=== PATIENT | female | born 1955 | race Caucasian/White ===

== ENCOUNTER 2016-10-31 17:23 | Observation (INO) | payer OTHER ==
[~2016-10-31] VITALS: Ht 149.9 cm; Wt 46.7 kg
[2016-10-31 17:32] VITALS: BP 196/116
[2016-10-31] MEDS ORDERED: HYDROCHLOROTHIA25 M1 PO (17:41)
[2016-10-31] MEDS ORDERED: FERROUS SULFAT325 MG PO (17:41)
[2016-10-31] MEDS ORDERED: METOPROLOL SUC PO (17:41)
[2016-10-31] MEDS ORDERED: LOSARTAN POTAS100 MG PO (17:41)
[2016-10-31] MEDS ORDERED: VENTOLIN H0.09 MG/Ac IH (17:41)
[2016-10-31] MEDS ORDERED: MASON NATURAL1000 IU PO (17:41)
[2016-10-31] MEDS ORDERED: GOOD SENSE OMEP20 MG PO (17:41)
--- NOTE | 2016-10-31 20:00 | NUR ---
TO ER BED 8
[2016-10-31] MEDS ORDERED: cloNIDine 0.1 MG TAB PO ONE (20:05)
[2016-10-31] MEDS ORDERED: FUROSEMIDE 40 MG TAB PO ONE (20:05)
--- NOTE | 2016-10-31 20:25 | NUR ---
PT IS 60Y/F C/O HYPERTENSION, PT. SENT BY PCP FOR HIGH BP 202/105 GIVEN CLONIDINE 0.1MG AT 1630
--- NOTE | 2016-10-31 20:29 | NUR ---
Patient being evaluated by DR. AYALA at bedside.
[2016-10-31] MEDS ORDERED: hydrALAZINE 20 MG/ML VIAL IVP ONE (20:40)
[2016-10-31] MEDS ORDERED: ASPIRIN 81 MG TAB.CHEW PO ONE (20:40)
[2016-10-31] MEDS ORDERED: NACL 0.9% 1,000 ML IV ONE (20:40)
[2016-10-31] MEDS ORDERED: NITROGLYCERIN 2% 1 GM PKT TP ONE (21:10)
[2016-10-31] MEDS ORDERED: ALBUTEROL HFA MDI 90 MCG/ACTUATION 8 GM INH SCH (21:25)
[2016-10-31] MEDS ORDERED: ACETAMINOPHEN 325 MG TAB PO PRN (21:25)
[2016-10-31] MEDS ORDERED: LABETALOL 100 MG/20 ML VIAL IVP PRN (21:25)
[2016-10-31] MEDS ORDERED: ONDANSETRON 4 MG/2 ML VIAL IVP PRN (21:25)
--- NOTE | 2016-10-31 21:49 | NUR ---
Patient will be admitted to care of DR. SAWANT. Admited to TELEMETRY. Will go to room 111B. Belongings list completed. Report to ANGELINA VU.
[2016-10-31 22:05] VITALS: BP 153/85
--- NOTE | 2016-10-31 22:05 | NUR ---
ADMITTED A 60F FROM ER. CAME BY NAPOLEON . WITH C/O OF VERY HIGH BLOOD PRESSURE FROM HOME. BP AT THIS TIME 153/85.AWAKE,ALERT AND ORIENTED X4. ON TELE MONITOR. NO C/O ANY DISCOMFORT NOR PAIN NOTED AT THIS TIME. AMBULATORY TO BR BUT WITH SOME BLE WEAKNESS . SHE SAID SHE BECOME WEAK SINCE SHE WAS DIAGNOSED WITH INFLAMMATORY BOWEL DISEASE. HAS SWELLING ON BOTH ANKLE AND FEET, NON PITTING. HAS IVF INFUSING ON THE RT FA#[id number]. CLEAR AND PATENT. SKIN INTACT. SHE SAID ALSO SHE LOST 25-30LBS IN THE LAST YEAR. PLAN OF CARE DISCUSSED AND VERBALIZED UNDERSTANDING. ORIENTED TO HOSPITAL ROUTINES. CALL LIGHT PLACED WITHIN EASY REACH. WILL CONTINUE TO MONITOR.
[2016-10-31] MEDS ORDERED: PNEUMOCOCCAL VACCINE 23 MCG/0.5 ML VIAL IMVAC PRN (23:20)
[2016-10-31] MEDS ORDERED: INFLUENZA VIRUS VACCINE QUAD 0.5 ML SYR IMVAC PRN (23:20)
[2016-11-01] VITALS: BP 124/76
--- NOTE | 2016-11-01 01:00 | NUR ---
SLEEPING AT THIS TIME. NO S/S OF ANY DISCOMFORT NOR PAIN NOTED. WILL CONTINUE TO MONITOR.
--- NOTE | 2016-11-01 03:30 | NUR ---
HAS BEEN UP TO THE BR ,VOIDED .WITH SLIGHT DIFFICULTY AMBULATION DUE TO SWELLING AND WEAKNESS ON BOTH FEET.
[2016-11-01 04:05] VITALS: BP 132/84
--- NOTE | 2016-11-01 06:45 | NUR ---
APPLIED FARRAH LOWER LEG SCD MACHINE. PT MADE AWARE OF THE PURPOSE OF THE MACHINE.
[2016-11-01] MEDS ORDERED: ALBUTEROL 0.083% 2.5 MG/3 ML NEBU INH PRN (07:05)
--- NOTE | 2016-11-01 07:27 | NUR ---
ENDORSED PT IN STABLE CONDITION TO HORACE SABACORE FITTER.
[2016-11-01] MEDS ORDERED: PANTOPRAZOLE 40 MG TABEC PO SCH (07:30)
[2016-11-01 08:30] VITALS: BP 136/76
[2016-11-01] MEDS ORDERED: FERROUS SULFATE 325 MG TABEC PO SCH (09:00)
[2016-11-01] MEDS ORDERED: METOPROLOL 50 MG TAB PO SCH (09:00)
[2016-11-01] MEDS ORDERED: ENOXAPARIN 30 MG/0.3 ML SYR SUBQ SCH (09:00)
[2016-11-01] MEDS ORDERED: NON-FORMULARY ITEM (Omeprazole (Omeprazole) 20 MG) PO SCH (09:00)
[2016-11-01] MEDS ORDERED: LOSARTAN 50 MG TAB PO SCH (09:00)
[2016-11-01] MEDS ORDERED: HYDROCHLOROTHIAZIDE 25 MG TAB PO SCH (09:00)
[2016-11-01] MEDS ORDERED: CHOLECALCIFEROL 1,000 IU TAB PO SCH (09:00)
[2016-11-01] MEDS ORDERED: METOPROLOL SUCCINATE 100 MG PO SCH (09:00)
--- NOTE | 2016-11-01 09:00 | NUR ---
RECEIVED SBAR REPORT FROM JAYANT VU. PT RESTING IN BED. DENIES PAIN. NO S/S OF RESPIRATORY DISTRESS. AAOX4. AMBULATORY TO BATHROOM. IV SITE PATENT AND INTACT. CALL LIGHT WITHIN REACH. WILL CONTINUE TO MONITOR.
[2016-11-01] MEDS ORDERED: MEDROL4 MG PO (11:41)
[2016-11-01] MEDS ORDERED: LEVAQUIN750 MG PO (11:41)
[2016-11-01 11:58] VITALS: BP 149/87
[2016-11-01 12:00] VITALS: BP 167/91
[2016-11-01] MEDS ORDERED: LABETALOL 100 MG/20 ML VIAL ONE (12:41)
--- NOTE | 2016-11-01 12:55 | NUR ---
PT MADE AWARE OF DISCHARGE ORDER. PATIENT FAMILY WILL COME PICK HER UP AFTER WORK. PT MEDICATED FOR INCREASED BP. PT RESTING IN BED. FLU/PNA VACCINE ADMINISTERED. CALL LIGHT WITHIN REACH.
[2016-11-01 13:58] VITALS: BP 149/87
--- NOTE | 2016-11-01 14:15 | NUR ---
PT DISCHARGE INSTRUCTIONS GIVEN. PT IV REMOVED, CANULA INTACT. AAOX4. AMBULATORY. DENIES PAIN. NO S/S OF RESPIRATORY DISTRESS. F/U INSTRUCTIONS GIVEN, VERBALIZED UNDERSTANDING. PT WHEELED TO FRONT LOBBY, DAUGHTER TO TAKE PATIENT HOME.
--- NOTE | 2016-11-01 15:10 | NUR ---
INITIAL REVIEW FAXED TO [facility] [phone] PHONE ДМИТРИЙ [phone]
== END 2016-11-01 14:15 | disposition home or self-care (01) ==
LOC: MED 17:23 → MTU 21:24
PROVIDERS: ADMIT Internal Medicine Pulmonary Disease; ATTEND Internal Medicine Pulmonary Disease
DX: I10 Essential (primary) hypertension (principal); J20.9 Acute bronchitis, unspecified; J44.0 Chronic obstructive pulmonary disease with (acute) lower respiratory infection; F17.200 Nicotine dependence, unspecified, uncomplicated; R04.0 Epistaxis
CPT/HCPCS: 36415; 71010; 80053; 83690; 83880; 84484; 85025; 85610; 85730; 87081; 90471; 90472; 90658; 90732; 93005; 94760; 96361; 96372; 96374; 96375; 99285; G0378; J0360; J1650; J3490; J7030

== ENCOUNTER 2017-04-26 10:11 | Inpatient (IN) | payer OTHER ==
[~2017-04-26] VITALS: Ht 152.4 cm; Wt 49.0 kg
[~2017-04-26 10:11] MED LIST: ALBU0.0912 IH; CHOL100013 PO; FERR325E14 PO; HYDR25TA32 PO; LEVO750T2 PO; LOSA100T25 PO; METH4TAB1 PO; METO-498 PO; OMEP20TC24 PO
[2017-04-26 10:15] VITALS: BP 196/111
[2017-04-26] MEDS ORDERED: ONDA4TAB PO (10:27)
--- NOTE | 2017-04-26 10:28 | NUR ---
PATIENT AMBULATED TO ER BED 4.
--- NOTE | 2017-04-26 10:30 | NUR ---
PATIENT BEING EVALUATED BY DR. HANSON.
--- NOTE | 2017-04-26 10:35 | NUR ---
PATIENT PRESENTS TO ED WITH C/O NAUSEA/VOMITING X 6MONTHS- 1 YR;X 1-3 EPISODES/ DAY DYSURIA, HESISTANCY, URGENCY X 6 MONTHS to 1 YR;CONSTIPATION;DENIES BURING UPON VOIDING , NO BLOOD IN URINE;LUIS ANGEL JAMA,HAS UPCOMING APPT FOR BX;DX of UTI RX KEFLEX 04/17/2017 AT [facility] but didn't finish medicine because she vomit everytime she takes in meds;HX of HTN, ARTHRITIS, COLITIS,GALLSTONES, RENAL FAILURE;RX of LOSARTAN/HCTZ, METOPROLOL, OMEPRAZOLE,PROZAC,VIT D3, ZOFRAN . SKIN IS PINK/WARM/DRY; AAOX4 WITH EVEN AND STEADY GAIT; LUNGS CLEAR BL; HR EVEN AND REGULAR; PT DENIES ANY FEVER, CP,OR COUGH AT THIS TIME; PATIENT STATES PAIN OF 7/10 abdominal pain AT THIS TIME; PATIENT POSITIONED FOR COMFORT; HOB ELEVATED; BEDRAILS UP X2; BED DOWN. all monitors in placed;ER MD MADE AWARE OF PT STATUS.
--- NOTE | 2017-04-26 10:56 | NUR ---
er at bedside
[2017-04-26] MEDS ORDERED: NACL 0.9% 1,000 ML IV SCH (10:57)
[2017-04-26] MEDS ORDERED: ONDANSETRON 4 MG/2 ML VIAL IVP ONE (11:00)
[2017-04-26 11:28] LABS: HEMATOCRIT 36.3 % (36-48); HEMOGLOBIN 11.7 g/dL (12.0-16.0); MEAN CORPUSCULAR HEMOGLOBIN 28 pg (27-31); MEAN CORPUSCULAR HGB CONC 32 g/dL (33-37); MEAN CORPUSCULAR VOLUME 87 fL (80-94); PLATELET COUNT (AUTO) 118 K/uL (140-450); RED CELL DISTRIBUTION WIDTH 13.5 % (11.6-13.7)
[2017-04-26 11:33] LABS: ANION GAP 9.6 (8-16); CARBON DIOXIDE 25.5 mmol/L (21-32); CREATININE 0.9 mg/dL (0.6-1.3); POTASSIUM 4.1 mmol/L (3.5-5.1)
[2017-04-26 11:33] LABS: BILIRUBIN,URINE NEGATIVE (NEGATIVE); BLOOD, URINE TRACE-I (NEGATIVE); COLOR,URINE YELLOW (YELLOW); LEUKOCYTE ESTERASE ,URINE NEGATIVE (NEGATIVE); NITRITE, URINE NEGATIVE (NEGATIVE); PH,URINE 6.5 (5.0-9.0); UGLUCOSE NEGATIVE (NEGATIVE)
[2017-04-26 11:36] LABS: WHITE BLOOD COUNT (AUTO) 2.4 K/uL (4.8-10.8)
[2017-04-26 11:39] LABS: ALBUMIN 2.6 g/dL (3.4-5.0); TOTAL BILIRUBIN 0.3 mg/dL (0.0-1.0)
[2017-04-26 11:42] LABS: BASOPHILS % (MANUAL) 1 % (0-2); EOSINOPHILS % (MANUAL) 2 % (0-4); LYMPHOCYTES % (MANUAL) 30 % (20-46); MONOCYTES % (MANUAL) 13 % (5-12)
[2017-04-26 11:45] LABS: APPEARANCE,URINE CLEAR (CLEAR)
[2017-04-26 11:47] LABS: RBC,URINE 0-5 (RARE) /HPF (0-5); WBC,URINE 0-5 (RARE) /HPF (0-5)
--- NOTE | 2017-04-26 12:17 | NUR ---
BP OF PT IS HIGH;RECYCLED BP 3X AND DID THE MANUAL BP OBTAINED BP OF 220/120;ER MD NOTIFIED;ALL MONITORS IN PLACED;EILL CONTINUE TO MONITOR PT;
[2017-04-26] MEDS ORDERED: ENALAPRILAT 2.5 MG/2 ML VIAL IVP ONE (12:20)
--- NOTE | 2017-04-26 13:26 | NUR ---
BP WENT DOWN TO 148/115;PT RESTING ON BED;ALL MONITORS IN PLACED;WILL CONTINUE TO MONITOR PT.
[2017-04-26] MEDS ORDERED: MAG SULF 2000 MG/WATER PREMIX 50 ML IV PRN (13:40)
[2017-04-26] MEDS ORDERED: POTASSIUM CHLORIDE 40 MEQ, LIDOCAINE 1% 25 MG in NACL 0.9% 250 ML IV PRN (13:40)
[2017-04-26] MEDS ORDERED: MORPHINE SULFATE 2 MG/ML SYR IVP PRN (13:40)
[2017-04-26] MEDS ORDERED: ACETAMINOPHEN 650 MG SUPP RC PRN (13:40)
[2017-04-26] MEDS ORDERED: DOCUSATE SODIUM 250 MG GELCAP PO PRN (13:40)
[2017-04-26] MEDS ORDERED: MAGNESIUM OXIDE 400 MG TAB PO PRN (13:40)
[2017-04-26] MEDS ORDERED: ALBUTEROL 0.083% 2.5 MG/3 ML NEBU INH PRN (13:40)
[2017-04-26] MEDS ORDERED: POTASSIUM CHLORIDE 10 MEQ TABER PO PRN (13:40)
[2017-04-26] MEDS ORDERED: IPRATROPIUM 0.02% 0.5 MG/2.5 ML NEBU INH PRN (13:40)
[2017-04-26] MEDS ORDERED: diphenhydrAMINE 50 MG/ML VIAL IVP PRN (13:40)
[2017-04-26] MEDS ORDERED: ALUMINUM HYD/MAG/SIMETHICONE 30 ML UDC PO PRN (13:40)
[2017-04-26] MEDS ORDERED: SODIUM PHOSPHATE 118 ML ENEM RC PRN (13:40)
[2017-04-26] MEDS ORDERED: BISACODYL 10 MG SUPP RC PRN (13:40)
[2017-04-26] MEDS ORDERED: guaiFENesin DM 200/20 MG-10 ML 10 ML UDC PO PRN (13:40)
[2017-04-26] MEDS ORDERED: ACETAMINOPHEN 325 MG TAB PO PRN (13:40)
[2017-04-26] MEDS ORDERED: HYDROcodone/APAP 5/325 MG 1 TAB TAB PO PRN ×2 (13:40)
[2017-04-26] MEDS ORDERED: LORazepam 2 MG/ML VIAL IVP PRN (13:40)
--- NOTE | 2017-04-26 14:05 | NUR ---
BP WENT UP TO 210/118;RECYCLED BP 2 X;NOTIFIED ER MD;ALL MONITORS IN PLACED;WILL CONTINUE TO MONITOR PT.
--- NOTE | 2017-04-26 14:10 | NUR ---
DAUGHTER AT BEDSIDE;NO ACUTE DISTRESS NOTED;WILL CONTINUE TO MONITOR PT.
--- NOTE | 2017-04-26 15:12 | NUR ---
REPORT GIVEN TO KERRI,ICU NURSE
[2017-04-26] MEDS: DEXT 5% / NACL 0.45% 1,000 ML IV SCH (15:43)
[2017-04-26] MEDS: hydrALAZINE 20 MG/ML VIAL IVP PRN (15:45)
--- NOTE | 2017-04-26 15:45 | NUR ---
ADMITTED PT FROM ER BY NAPOLEON, PT AWAKE, ALERT, AND ORIENTED. ATTACHED PT ON BEDSIDE MONITOR SHOWS SB, HR 52, BP 214/118, RR 17, 02 SAT 100%. ON ROOM AIR. NO S/S OF RESPIRATORY DISTRESS NOTED. LUNG SOUND CLEAR. ABDOMEN SOFT, NON TENDER. PT HAS IV TO RIGHT HAND # 24. PT ABLE TO MOVE ALL HER EXTREMITIES BUT GENERALIZED WEAKNESS NOTED. HOB ELEVATED 30 DEGREES WITH LOW BED POSITION, ORIENTED PT ICU ENVIRONMENT, WILL CONTINUE TO MONITOR.
[2017-04-26 16:00] VITALS: BP 191/113
[2017-04-26] MEDS: ONDANSETRON 4 MG/2 ML VIAL IVP PRN (16:53)
--- NOTE | 2017-04-26 16:58 | NUR ---
PT BP 147/75, HR 53, O2 98% AT THIS TIME.
[2017-04-26 18:00] VITALS: BP 186/77
[2017-04-26] MEDS: cloNIDine 0.1 MG TAB PO PRN (18:05)
--- NOTE | 2017-04-26 18:05 | NUR ---
PAGED DR. BOWDEN REGARDING CATAPRESS, DR. BURGESS HELPER STEEL FABRICATION. NOTIFIED DR. BURGESS PT BP 186/77, HR 54 AT THIS TIME, APRESOLINE WAS GIVEN AT 1545. PER IT IS OK TO GIVE CATAPRES, WILL CARRY OUT.
--- NOTE | 2017-04-26 18:35 | NUR ---
PT BP 165/91, HR 52, RR 19, O2 SAT 99%. AT THIS TIME
--- NOTE | 2017-04-26 19:24 | NUR ---
REPORT GIVEN TO KARISHMA VU. PT BP 127/75, HR 54, O2 SAT 98% AT THIS TIME.
--- NOTE | 2017-04-26 19:30 | NUR ---
RECEIVED REPORT FROM AM NURSE WITH HORACE SCHWARZ. PT SLEEPING COMFORTABLY IN BED, CONDITION STABLE. MONITORING IN PLACE. NO S/S OF ACUTE DISTRESS. ALL NEEDS MET. SAFETY MEASURES ENSURED. CALL LIGHT WITHIN REACH.
[2017-04-26 20:00] VITALS: BP 109/63
[2017-04-26] MEDS ORDERED: METOPROLOL SUCCINATE 100 MG PO SCH (21:00)
[2017-04-26] MEDS ORDERED: METOPROLOL 50 MG TAB PO SCH (21:00)
[2017-04-26] MEDS ORDERED: METOPROLOL SUCCINATE 50 MG TABER PO SCH (21:00)
[2017-04-26 22:00] VITALS: BP 135/79
--- NOTE | 2017-04-26 22:00 | NUR ---
SLEEPING COMFORTABLY IN BED; V/S ESPECIALLY BP HAS BEEN NORMALIZED SINCE ANTI HTN MEDS GIVEN BY DAY SHIFT RN.
[2017-04-27] VITALS (16 sets, daily range): BP systolic 130–180; BP diastolic 72–100
--- NOTE | 2017-04-27 00:45 | NUR ---
AWAKE; SIT ON A BEDSIDE COMMODE, WAS ABLE TO PASSED STOOL BUT SHE SAID SHE GOT A HARD TIME PEE AND SHE COMPLAIN OF ABDOMINAL PAIN AFTER; PAIN SCALE 8/10; PAGED DR. SHANE AT 0055 TO REFER PATIENT; RETURNED CALL IMMEDIATELY, GOT NEW ORDERS, CARRIED OUT.
[2017-04-27] MEDS ORDERED: IBUPROFEN 600 MG TAB PO PRN (01:00)
[2017-04-27] MEDS: KETOROLAC 30 MG/ML VIAL IVP PRN ×2 (01:12→09:28)
[2017-04-27] MEDS ORDERED: KETOROLAC 30 MG/ML VIAL ONE (01:14)
--- NOTE | 2017-04-27 01:25 | NUR ---
SPOKE AND DISCUSSED TO PATIENT ABOUT HER CODE STATUS SHE SAID SHE'LL DECIDE LATER AFTER SHE DISCUSSED IT WITH HER DAUGHTER.
--- NOTE | 2017-04-27 05:00 | NUR ---
REFUSED TO HAVE A SPONGE BATH AT THIS TIME, PREFERS TO SLEEP.
[2017-04-27 05:53] LABS: ANION GAP 8.5 (8-16); CARBON DIOXIDE 20.9 mmol/L (21-32); POTASSIUM 3.4 mmol/L (3.5-5.1)
[2017-04-27 06:20] LABS: BASOPHILS # (AUTO) 0.1 K/uL (0.00-0.22); BASOPHILS % (AUTO) 4.6 % (0.0-2.0); EOSINOPHILS % (AUTO) 1.5 % (0.0-4.0); HEMATOCRIT 33.9 % (36-48); HEMOGLOBIN 10.9 g/dL (12.0-16.0); LYMPHOCYTES # (AUTO) 1.2 K/uL (2.5-16.5); LYMPHOCYTES % (AUTO) 40.7 % (20.5-51.1); MEAN CORPUSCULAR HEMOGLOBIN 29 pg (27-31); MEAN CORPUSCULAR HGB CONC 32 g/dL (33-37); MEAN CORPUSCULAR VOLUME 88 fL (80-94); MONOCYTES # (AUTO) 0.4 K/uL (0.8-1.0); MONOCYTES % (AUTO) 12.6 % (1.7-9.3); NEUTROPHILS # (AUTO) 1.2 K/uL (1.8-7.7); NEUTROPHILS % (AUTO) 40.6 % (42.2-75.2); PLATELET COUNT (AUTO) 114 K/uL (140-450); RED BLOOD CELL COUNT(AUTO) 3.84 MIL/uL (4.20-5.40); RED CELL DISTRIBUTION WIDTH 13.4 % (11.6-13.7); WHITE BLOOD COUNT (AUTO) 2.9 K/uL (4.8-10.8)
[2017-04-27] MEDS: hydrALAZINE 20 MG/ML VIAL IVP PRN ×6 (06:21→22:06)
--- NOTE | 2017-04-27 06:57 | NUR ---
PATIENT HAS BEEN SCREENED AND CATEGORIZED HIGH NUTRITION RISK. PATIENT WILL BE SEEN WITHIN 1-2 DAYS OF ADMISSION. 04/27/17-04/28/17 KEI MANRIQUE MS, RDN
--- NOTE | 2017-04-27 07:30 | NUR ---
ENDORSED TO AM SHIFT RN RAWI FOR CONTINUITY OF CARE.
--- NOTE | 2017-04-27 07:45 | NUR ---
RECEIVED PATIENT AWAKE,ALERT AND ORIENTED X 4. MONITOR SHOWS SINUS BRADYCARDIA 48/MIN,BUT PATIENT IS ASYMPTOMATIC. DENIES SOB OR PAIN AT THIS TIME. RESP IS EASY,REGULAR AND ON ROOM AIR WITH O2 SAT 97%. ABDOMEN IS SOFT,ACTIVE BOWEL TONE AND TENDER ON EPIGASTRIC AREA. PATIENT DENIES NAUSEA. NO BLADDER DISTENTION. SKIN IS WARM,DRY AND INTACT. NO EDEMA. ABLE TO MOVE ALL EXTREMITIES. HAS IV OF D5/0.45 NS @ 70 ML/HR. CONDITION IS STABLE. AM CARE AND ORAL CARE GIVEN. GETTING PATIENT READY FOR BREAKFAST.
[2017-04-27] MEDS: DEXT 5% / NACL 0.45% 1,000 ML IV SCH (07:48)
--- NOTE | 2017-04-27 08:10 | NUR ---
PATIENT WITH BREAKFAST TRAY AT THIS TIME NO SOB NOTED
--- NOTE | 2017-04-27 08:30 | NUR ---
PATIENT ATE BREAKFAST 50% AND TAKING FLUID FAIR.
[2017-04-27] MEDS ORDERED: NON-FORMULARY ITEM (Losartan Potassium 100 MG) PO SCH (09:00)
[2017-04-27] MEDS ORDERED: NON-FORMULARY ITEM (Cholecalciferol (Vitamin D3) (Vitamin D3) 1,000 IU) PO SCH (09:00)
[2017-04-27] MEDS ORDERED: NON-FORMULARY ITEM (Omeprazole (Omeprazole) 20 MG) PO SCH (09:00)
[2017-04-27] MEDS ORDERED: METOPROLOL SUCCINATE 50 MG TABER PO SCH (09:00)
[2017-04-27] MEDS ORDERED: CHOLECALCIFEROL 1,000 IU TAB PO SCH (09:00)
--- NOTE | 2017-04-27 09:00 | NUR ---
PATIENT GOT OUT OF BED TO BEDSIDE COMMODE. TOLERATED WELL. PATIENT VOIDED 50 ML SLIGHTLY CLOUDY YELLOW URINE AND HAS SMALL HARD FORMED BROWN STOOL. COMPLETE BATH GIVEN AND PARTIAL LINEN CHANGED.
[2017-04-27] MEDS ORDERED: PROBIOTIC SCREEN 1 EA MISC MC PRN (09:15)
[2017-04-27] MEDS: PANTOPRAZOLE 40 MG TABEC PO SCH (09:25)
[2017-04-27] MEDS: HYDROCHLOROTHIAZIDE 25 MG TAB PO SCH (09:28)
--- NOTE | 2017-04-27 09:28 | NUR ---
PATIENT C/O PRESSURE PAIN IN EPIGASTRIC AREA AND LT UPPER ABDOMEN WITH PAIN SCALE LEVEL OF 8/10. DENIES NAUSEA. MEDICATED WITH TORADOL 30 MG IVP PER ORDER. CONTINUE TO MONITOR PATIENT.
--- NOTE | 2017-04-27 09:47 | NUR ---
WAS NOTIFIED OF PATIENT HAS BRADYCARDIA WITH HEART RATE BETWEEN 45-49/MIN IN THE PAST 2 HR AND PATIENT IS ASYMPTOMATIC. ALSO WAS NOTIFIED OF METOPROLOL WAS ON HOLD DUE SLOW HEART RA PER : OKAY TO HOLD METOPROLOL,BUT IT IS OKAY TO GIVE COZAAR. ORDER CARRIED OUT.
[2017-04-27] MEDS ORDERED: POTASSIUM CHLORIDE 10 MEQ TABER PO SCH (09:55)
[2017-04-27] MEDS: LOSARTAN 50 MG TAB PO SCH (09:59)
--- NOTE | 2017-04-27 10:00 | NUR ---
GRAND DAUGHTER PRESENT AT BEDSIDE. PATIENT STATES THAT THE PAIN IS MUCH BETTER NOW WITH PAIN SCALE LEVEL OF 2 OUT OF 10.
--- NOTE | 2017-04-27 11:00 | NUR ---
APPLIED SCD TO BOTH LOWER LEGS FOR VTE PROPHYLAXIS.
--- NOTE | 2017-04-27 13:40 | NUR ---
IS AT BEDSIDE ,EXAMINED THE PATIENT THEN HE SPOKE TO PATIENT'S GRAND DAUGHTER BY PHONED REGARDING PT'S CONDITION AND PLAN OF CARE. PATIENT IS ALERT AND ORIENTED. VERBALIZED UNDERSTANDING WHEN SPOKE TO HER. NEW ORDER RECEIVED: D.C IV FLUID,CHANGE SOME OF HYPERTENSIVE DRUG AND TRANSFER PATIENT TO TELEMETRY.
--- NOTE | 2017-04-27 17:22 | NUR ---
AWAKE AND ALERT. BP IS HIGH 174/85 , SINUS BRADYCARDIA 54/MIN. DENIES HEADACHE. GIVEN PATIENT PRN APRESOLINE 10 MG IVP PER ORDER.
--- NOTE | 2017-04-27 18:15 | NUR ---
DAUGHTER PRESENT AT BEDSIDE. UP TO BSC AND VOIDED 150 ML YELLOW URINE.
[2017-04-27] MEDS: hydrALAZINE 25 MG TAB PO SCH (18:27)
--- NOTE | 2017-04-27 18:30 | NUR ---
BP 160/84 ,HR 56/MIN.
--- NOTE | 2017-04-27 18:53 | NUR ---
ENDORSED TO TELE NURSE ARAMIS VU TO FOLLOW UP WITH REGARDING THE PATIENT WANTS TO HAVE PNEUMOCOCCAL VACCINATION PRIOR TO DISCHARGE.
--- NOTE | 2017-04-27 18:53 | NUR ---
PATIENT WILL BE TRANSFERRED TO TELE BED ROOM 119-A. PT'S DAUGHTER IS STILL HERE AND MADE AWARE. REPORT GIVEN TO TELE NURSE ARAMIS VU.
--- NOTE | 2017-04-27 19:05 | NUR ---
CONDITION IS UNCHANGED. HR 56/MIN SINUS BRADYCARDIA. LT FOREARM IV SALINE LOCK IS INTACT. TRANSFERRED PATIENT TO TELE BED 119-A VIA BED.
--- NOTE | 2017-04-27 19:15 | NUR ---
RECD. RESTING ON BED, AWAKE, A/OX4. RESPIRATION EVEN AND UNLABORED. IV SALINE LOCK AT THE LEFT FA, G24, PATENT AND INTACT. APPEARS WEAK, STATED SHE STILL FEELS SOME NAUSEA, ON AND OFF. INSTRUCTED TO CALL NURSE IF EVER GETTING OUT OF BED FOR ASSISTANCE. SAFETY MEASURES ENFORCED. BED ON ALARM. PLAN OF CARE FOR THE SHIF5 DISCUSSED. VERBALIZED UNDERSTANDING. DENIES PAIN 0/10.
--- NOTE | 2017-04-27 20:00 | NUR ---
Patient's Plan of Care was discussed and reviewed with PROCESS TRAINER: MINOO Sahu
--- NOTE | 2017-04-27 23:00 | NUR ---
ASSISTED TO USE THE BSC, BACK TO BED AFTER VOIDING, SAFETY MAINTAINED.
[2017-04-28] VITALS: BP 171/84
[2017-04-28] MEDS: cloNIDine 0.1 MG TAB PO PRN ×2 (00:53→17:06)
[2017-04-28 04:00] VITALS: BP 160/81
[2017-04-28] MEDS: ONDANSETRON 4 MG/2 ML VIAL IVP PRN (06:24)
--- NOTE | 2017-04-28 06:25 | NUR ---
NAUSEATED, MEDICATED WITH ZOFRAN 4 MG. IVP BY HORACE CORREA.
--- NOTE | 2017-04-28 06:30 | NUR ---
FOLLOW UP WITH CHARGE NURSE KARISHMA FROM ICU REGARDING CODE STATUS OF PATIENT. STATED WHEN THEY ASKED THE PATIENT REGARDING HER CODE STATUS, PATIENT SAID SHE WILL DISCUSSED WITH HER DAUGHTER.
--- NOTE | 2017-04-28 06:40 | NUR ---
CALLED DAUGHTER JASMIN IN HER PHONE TWO TIMES. NOBODY ANSWERS JUST LEFT A MESSAGE, WILL ENDORSE TO AM NURSE FOR FOLLOW UP. CHARGE NURSE FRANCES KHAN.
[2017-04-28 06:51] LABS: ANION GAP 13.4 (8-16); CARBON DIOXIDE 18.6 mmol/L (21-32)
--- NOTE | 2017-04-28 06:55 | NUR ---
NO NAUSEA NOTED. RESTING COMFORTABLY IN BED. WILL ENDORSE TO AM NURSE FOR CONTINUITY OF CARE.
--- NOTE | 2017-04-28 07:25 | NUR ---
ENDORSED TO HORACE PADRON FOR MONITORING OF BP, CODE STATUS AND CONTINUITY OF CARE.
--- NOTE | 2017-04-28 07:30 | NUR ---
RECEIVED ON BED AAOX4. NO SOB NOTED. NO C/O PAIN AT THIS TIME. WITH IV TO LT HAND PATENT AND INTACT. CHEST CLEAR. ABDOMEN SOFT, BOWEL SOUNDS PRESENT. NO EDEMA NOTED. INSTRUCTED PT TO CALL FOR ASSISTANCE, CALL LIGHT WITHIN REACH. PT VERBALIZED UNDERSTANDING.
[2017-04-28 08:00] VITALS: BP 153/82
[2017-04-28] MEDS ORDERED: BISACODYL 10 MG SUPP RC SCH (09:15)
[2017-04-28] MEDS: LOSARTAN 50 MG TAB PO SCH (09:15)
[2017-04-28] MEDS: hydrALAZINE 25 MG TAB PO SCH ×3 (09:16→17:04)
[2017-04-28] MEDS: PANTOPRAZOLE 40 MG TABEC PO SCH (09:16)
[2017-04-28] MEDS: HYDROCHLOROTHIAZIDE 25 MG TAB PO SCH (09:16)
[2017-04-28] MEDS ORDERED: amLODIPine 5 MG TAB PO SCH (09:17)
[2017-04-28 12:00] VITALS: BP 157/96
[2017-04-28] MEDS: METOCLOPRAMIDE 10 MG TAB PO SCH ×2 (12:49→17:04)
--- NOTE | 2017-04-28 13:04 | NUR ---
Social Service Note: Social Service Note: Per Alee from [facility] , they can accept patient, however, need snf authorization from [facility]. Per Yari from [facility] , they can accept patient, however, need snf authorization from [facility]. I received a phone call from Kimberly at [facility] , she stated [facility] contacted her regarding placement. Per Kimberly, she needs physical therapy notes to be fax to her before she can provide snf authorization, charge nurse Veronika alatorre. Addendum: 04/28/17 at 1314 by Annalisa ARANA Both Wenceslao alatorre patient needs halfway snf placement
--- NOTE | 2017-04-28 13:56 | NUR ---
FAXED INITIAL REVIEW TO [facility] [phone] PHONE ДМИТРИЙ [phone]
--- NOTE | 2017-04-28 14:25 | NUR ---
04/28/17 RD INITIAL ASSESSMENT COMPLETED. ' PLEASE REFER TO NUTRITION ASSESSMENT UNDER CARE ACTIVITY FOR ESTIMATED NUTRITIONAL NEEDS. RD RECOMMENDATIONS: 1- RECOMMEND CONTINUE CARDIAC DIET. 2- WILL ADD HEALTHSHAKES TID TO DIET. 3- ENCOURAGE INCREASED PO INTAKE; SMALLER MORE FREQUENT PORTIONS. 4- FOLLOW UP 3-5 DAYS; MODERATE RISK. YASMIN WALTERS; LINO, RD
--- NOTE | 2017-04-28 15:37 | NUR ---
PT'S DAUGHTER CAME AND ASKED INFORMATION ABOUT CODE STATUS, WASH PLANT OPERATOR LUIS EXPLAINED THE POLST TO OT AND DAUGHTER. PT SIGNED THE POLST FORM. PAGED DR. BOWDEN REGARDING PT'S CODE STATUS. DR. JOYNER OBIEE OBIA SOLUTION ARCHITECT AWAITING FOR CALL BACK.
[2017-04-28 16:30] VITALS: BP 161/96
--- NOTE | 2017-04-28 17:00 | NUR ---
PT HAD A SMALL BM X1, 3 SMALL HARD BROWN STOOLS NOTED.
--- NOTE | 2017-04-28 19:01 | NUR ---
PT RESTING. NO SOB NOTED. NO COMPLAINTS MADE. WILL ENDORSE TO NEXT SHIFT NURSE FOR CONTINUITY OF CARE.
--- NOTE | 2017-04-28 19:15 | NUR ---
RECEIVED PT FROM VITO RN PT IS AAOX4 ON TELEMETRY SB USING BSC COMPLAINTS OF CONSTIPATION HE HAD A BM SMALL HARD STOOL NOT DISTRESS NOTED AT THIS TIME. INITIAL ASSESSMENT DONE
[2017-04-28 20:00] VITALS: BP 145/85
--- NOTE | 2017-04-28 21:00 | NUR ---
PT DOES NOT COMPLAINT OF ANY DISCOMFORT AT THIS TIME REPOSITIONED Q2H
[2017-04-29] VITALS: BP 150/88
--- NOTE | 2017-04-29 00:58 | NUR ---
PT RESTINGON BED DENIES ANY LPAIN OR DISCOMFORT ON TELEMETRY SR./ INVERTED T
[2017-04-29 04:00] VITALS: BP 148/77
--- NOTE | 2017-04-29 04:00 | NUR ---
SPONGE BTH GIVEN LINEN CHANGE ON TELEMETRY SB INVERTED T , PT SLEEPING WELL AFTER SPONGE BATH
--- NOTE | 2017-04-29 05:09 | NUR ---
DENIES ANY PAIN , FEVER OR DISCOMFORT USING BSC VOIDIG WELL
[2017-04-29] MEDS: METOCLOPRAMIDE 10 MG TAB PO SCH ×3 (05:45→16:45)
[2017-04-29 06:23] LABS: BASOPHILS # (AUTO) 0.1 K/uL (0.00-0.22); BASOPHILS % (AUTO) 4.9 % (0.0-2.0); EOSINOPHILS % (AUTO) 1.7 % (0.0-4.0); HEMATOCRIT 32.6 % (36-48); HEMOGLOBIN 10.8 g/dL (12.0-16.0); LYMPHOCYTES # (AUTO) 1.2 K/uL (2.5-16.5); LYMPHOCYTES % (AUTO) 40.4 % (20.5-51.1); MEAN CORPUSCULAR HEMOGLOBIN 29 pg (27-31); MEAN CORPUSCULAR HGB CONC 33 g/dL (33-37); MEAN CORPUSCULAR VOLUME 88 fL (80-94); MONOCYTES # (AUTO) 0.3 K/uL (0.8-1.0); MONOCYTES % (AUTO) 10.9 % (1.7-9.3); NEUTROPHILS # (AUTO) 1.2 K/uL (1.8-7.7); NEUTROPHILS % (AUTO) 42.1 % (42.2-75.2); PLATELET COUNT (AUTO) 124 K/uL (140-450); RED BLOOD CELL COUNT(AUTO) 3.72 MIL/uL (4.20-5.40); RED CELL DISTRIBUTION WIDTH 13.6 % (11.6-13.7)
[2017-04-29 06:35] LABS: ANION GAP 10.6 (8-16); CARBON DIOXIDE 22.2 mmol/L (21-32); CREATININE 0.9 mg/dL (0.6-1.3); POTASSIUM 3.8 mmol/L (3.5-5.1)
--- NOTE | 2017-04-29 07:20 | NUR ---
RECEIVED REPORT FROM HOME HEALTH AIDE CAREGIVER RN. PATIENT IS STABLE AT THIS TIME, AWAKE AND LAYING IN BED AT THIS TIME.
[2017-04-29 07:28] LABS: WHITE BLOOD COUNT (AUTO) 2.9 K/uL (4.8-10.8)
[2017-04-29 08:00] VITALS: BP 169/83
[2017-04-29] MEDS: HYDROCHLOROTHIAZIDE 25 MG TAB PO SCH (08:29)
[2017-04-29] MEDS: hydrALAZINE 25 MG TAB PO SCH ×3 (08:29→16:47)
[2017-04-29] MEDS: PANTOPRAZOLE 40 MG TABEC PO SCH (08:29)
[2017-04-29] MEDS: LOSARTAN 50 MG TAB PO SCH (08:30)
[2017-04-29] MEDS ORDERED: amLODIPine 5 MG TAB PO SCH (09:00)
[2017-04-29 12:00] VITALS: BP 135/69
--- NOTE | 2017-04-29 12:26 | NUR ---
WENT TO PATIENTS BEDSIDE WITH DR BOWDEN, PLANS TO CONTINUE CURRENT MEDICATIONS THAT SHE IS CURRENTLY RECEIVING. PLANS TO DISCHARGE TO CUSTODIAL FACILITY.
--- NOTE | 2017-04-29 13:36 | NUR ---
SS NOTE: I SPOKE WITH PT BEDSIDE AND INFORMED HER THAT SHE HAS BEEN ACCEPTED AT [facility] AND [facility]. SHE STATED THAT SHE WOULD PREFER [facility] BECAUSE IT IS A SMALLER FACILITY.
--- NOTE | 2017-04-29 14:17 | NUR ---
SPOKE WITH JACK FROM [facility] COVERING FOR JANUARY. HE SAID TO FAX REVIEW TO HIM DIRECT AT [phone]. CONCURRENT REVIEW , ORDER AND PT NOTES FAXED TO JACK PHONE [phone]
--- NOTE | 2017-04-29 14:40 | NUR ---
SS NOTE: PER SHYANNE FROM [facility] ([phone]), PT CAN GO TO ROOM 19C UNDER DR. Ricardo OLSON ONCE THEY RECEIVE AUTH FROM [facility].
--- NOTE | 2017-04-29 15:19 | NUR ---
RECEIVED A CALL FROM JACK FROM [facility]. AUTH FOR [facility] IS [id number]. AUTH FOR TRANSPORT [id number]. I CALLED [facility] AND SET UP WHEELCHAIR TRANSPORT FOR 8:30P.Lesley LOYOLA RN CHARGE NURSE AWARE. I [facility] GET AN EARLIER TIME, THEY WILL CALL THE FLOOR. KARTIK FROM [facility] GIVEN AUTH NUMBER.
[2017-04-29] MEDS ORDERED: METO-485 PO (15:20)
[2017-04-29] MEDS ORDERED: LOSA100T1 PO (15:22)
[2017-04-29] MEDS ORDERED: HYDR-1098 PO (15:22)
[2017-04-29] MEDS ORDERED: AMLO5TAB PO (15:23)
[2017-04-29] MEDS ORDERED: ORE25 PO (15:23)
[2017-04-29] MEDS ORDERED: PANT40EC PO (15:24)
[2017-04-29] MEDS ORDERED: CLON0.1T42 PO (15:25)
[2017-04-29] MEDS ORDERED: DOCU-67 PO (15:26)
[2017-04-29] MEDS ORDERED: IBUP-2213 PO (15:27)
[2017-04-29] MEDS ORDERED: MAG355OR2 PO (15:27)
[2017-04-29] MEDS ORDERED: ACET-2619 PO (15:28)
[2017-04-29] MEDS ORDERED: BISA-213 RC (15:29)
--- NOTE | 2017-04-29 16:00 | NUR ---
SPOKE WITH GRANDDAUGHTER REGARDING TRANSPORTATION TO [facility].
[2017-04-29 16:30] VITALS: BP 192/93
[2017-04-29] MEDS: ONDANSETRON 4 MG/2 ML VIAL IVP PRN (16:31)
--- NOTE | 2017-04-29 16:41 | NUR ---
REPORT GIVEN TO SUSIE-CHARGE NURSE AT [facility].
[2017-04-29] MEDS: cloNIDine 0.1 MG TAB PO PRN (16:46)
--- NOTE | 2017-04-29 16:55 | NUR ---
DISCHARGE INSTRUCTIONS GIVEN TO PATIENT, VERBALIZED UNDERSTANDING OF REASON FOR GOING TO SNF. IV DISCONTINUED, ARM BANDS CUT OFF, BELONGINGS WITH PATIENT. NO SIGNS AND SYMPTOMS OF ACUTE DISTRESS UPON DISCHARGE.
[2017-04-29 17:00] VITALS: BP 159/92
--- NOTE | 2017-04-29 17:00 | NUR ---
[facility] WHEELED PATIENT OUT VIA WHEELCHAIR. IN STABLE CONDITION. PT ALERT, AWAKE, ORIENTED, NO COMPLAINTS OF PAIN AT THIS TIME.
--- NOTE | 2017-04-29 17:05 | NUR ---
CALLED GRANDDAUGHTER TO INFORM THAT SHE IS ON HER WAY TO THE SNF.
== END 2017-04-29 17:00 | DRG 241 ==
LOC: MED 10:11 → MIC 14:53 → MTU 04-27 19:10
PROVIDERS: ADMIT Internal Medicine Pulmonary Disease; ATTEND Internal Medicine Pulmonary Disease
DX: K29.50 Unspecified chronic gastritis without bleeding (principal); E44.1 Mild protein-calorie malnutrition; I10 Essential (primary) hypertension; R00.1 Bradycardia, unspecified; D72.819 Decreased white blood cell count, unspecified; K59.00 Constipation, unspecified; E87.1 Hypo-osmolality and hyponatremia; G89.29 Other chronic pain; K21.9 Gastro-esophageal reflux disease without esophagitis; Z88.6 Allergy status to analgesic agent
CPT/HCPCS: 36415; 80048; 80053; 81001; 83690; 84484; 85025; 87081; 93005; 94640; 96361; 96374; 96375; 97110; 99285; J0360; J1885; J2405; J3490; J7613; J7644; J8597